=== PATIENT | female | born 1975 | race Caucasian/White ===

== ENCOUNTER 2023-11-01 | Emergency (ER) | payer OTHER, SELFPAY ==
[2023-11-01] VITALS (23 sets, daily range): BP systolic 105–135; BP diastolic 56–74; PULSE 75–100; RESP 14–23; TEMP 36.8; O2SAT 94–955; BMI 25.2
--- NOTE | 2023-11-01 00:14 | DI.RAD.S_ITS ---
PROCEDURE: XR ANKLE LT MIN 3V INDICATIONS: fall, turned ankle, deformity noted TECHNIQUE: 3 views of the ankle were acquired. COMPARISON: None. FINDINGS: Bones: Bimalleolar fracture with medial subluxation of the tibia over the talus complete disruption ankle mortise Soft tissues: No tibiotalar joint effusion. Achilles tendon appears normal. IMPRESSION: Displaced bimalleolar fracture with complete ankle mortise disruption Approved by: Farhat Matias M.D. on 11/01/2023 at 0:40
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
--- NOTE | 2023-11-01 01:26 | DI.RAD.S_ITS ---
PROCEDURE: XR FOOT RT MIN 3V INDICATIONS: right 5th metatarsal pain TECHNIQUE: 3 views of the foot were acquired. COMPARISON: None. FINDINGS: Bones: No fractures or dislocations. No suspicious bony lesions. Soft tissues: No tibiotalar joint effusion. Achilles tendon appears normal. IMPRESSION: No acute bony abnormality. Approved by: Farhat Matias M.D. on 11/01/2023 at 1:39
[2023-11-01] MEDS: MORPHINE 4 MG/ML INJ IV ×2 (01:34→06:35)
[2023-11-01] MEDS: ONDANSETRON 4 MG/2 ML INJ IV (01:35)
--- NOTE | 2023-11-01 01:45 | DI.RAD.S_ITS ---
PROCEDURE: XR ANKLE LT MIN 3V INDICATIONS: post reduction left ankle TECHNIQUE: 3 views of the ankle were acquired. COMPARISON: [facility], CR, XR ANKLE LT MIN 3V, 11/01/2023, 0:35. FINDINGS: Bones: Casting material obscures fine bony detail. Improved alignment of the trimalleolar fractures. Ankle mortise dislocation is relocated. No suspicious bony lesions. IMPRESSION: Improved alignment of the trimalleolar fractures and ankle mortise post casting. This report is concordant with the overnight preliminary interpretation. Dictated by: Pietro Thapa M.D. on 11/01/2023 at 7:47 Approved by: Pietro Thapa M.D. on 11/01/2023 at 7:51
[2023-11-01] MEDS: propofoL 200 MG/20 ML VIAL 100 MG IV (02:15)
== END 2023-11-01 07:54 | disposition home or self-care (01) ==
PROVIDERS: Emergency Provider Emergency Medicine
DX: S82.842A Displaced bimalleolar fracture of left lower leg, initial encounter for closed fracture (principal); M79.671 Pain in right foot; W22.8XXA Striking against or struck by other objects, initial encounter; Y92.833 Campsite as the place of occurrence of the external cause
CPT/HCPCS: 27810; 73610; 73630; 96374; 96375; 96376; 99152; 99283; 99284; J2270; J2405; J2704